=== PATIENT | male | born 2000 | race Caucasian/White ===

== ENCOUNTER 2024-06-28 14:52 | Emergency (ER) | payer BC ==
[2024-06-28 15:03] VITALS: BP 136/85; PULSE 80; RESP 16; TEMP 98.4; BMI 25.1
[2024-06-28] MEDS: KETOROLAC TROMETHAMINE 30 MG/1 ML VIAL IM ONE (16:50)
== END 2024-06-28 16:59 | disposition home or self-care (01) ==
LOC: JERFT 14:52
PROC: 3E0133Z Introduction of Anti-inflammatory into Subcutaneous Tissue, Percutaneous Approach (ICD-10-PCS; principal; 2024-06-28)
DX: S29.012A Strain of muscle and tendon of back wall of thorax, initial encounter (principal); R20.2 Paresthesia of skin; X50.0XXA Overexertion from strenuous movement or load, initial encounter
CPT/HCPCS: 99284-25